=== PATIENT | male | born 1945 | race Two or more races ===

== ENCOUNTER 2025-03-17 07:04 | Inpatient (IN) | payer MEDICARE, OTHER ==
[2025-03-17] VITALS (9 sets, daily range): BP systolic 100–162; BP diastolic 73–87; PULSE 60–73; RESP 12–18; TEMP 97.6–98.7; O2SAT 94–100
[~2025-03-17] VITALS: Ht 165.1 cm; Wt 72.1 kg
[~2025-03-17 07:04] MED LIST: ASPI-498 OR; ATEN-60 PO; FURO20TA4 GT; LEVO25TA6 PO; OMEP20TA PO
[2025-03-17] MEDS ORDERED: MIDAZOLAM HCL 2MG/2ML 2ml VIAL (1mg/ml) ONE (08:31)
[2025-03-17] MEDS ORDERED: fentaNYL CITRATE 100 MCG/2 ML VL ONE (08:31)
[2025-03-17] MEDS ORDERED: KETAMINE 50mg/ML 1ml syringe ONE (08:31)
[2025-03-17] MEDS ORDERED: PROPOFOL 10 MG/ML 20 ML IV ONE (08:32)
[2025-03-17] MEDS ORDERED: BUPIVACAINE/DEXTROSE MPF 0.75% 2 ML AMP IT ONE (08:32)
[2025-03-17] MEDS ORDERED: GLYCOPYRROLATE 0.2 MG/ML 1ML VIAL ONE (08:32)
[2025-03-17] MEDS ORDERED: PHENYLEPHRINE HCL 10 MG/ML VL ONE (08:32)
[2025-03-17] MEDS: CELECOXIB 100 MG CAP PO ONE (08:45)
[2025-03-17] MEDS: ACETAMINOPHEN IV 1000 MG/100ML (10MG/ML) IV ONE ×2 (08:45→15:10)
[2025-03-17] MEDS: PREGABALIN CAPSULE 75 MG CAP PO ONE (08:45)
[2025-03-17] MEDS ORDERED: ceFAZolin 1GM/50ML 50 ML IV SCH (09:30)
[2025-03-17] MEDS ORDERED: NITROGLYCERIN 0.4 MG SL TAB SL PRN (09:30)
[2025-03-17] MEDS ORDERED: MORPHINE SULFATE INJ 2 MG/ml SYRG IV PRN (09:30)
[2025-03-17] MEDS ORDERED: ONDANSETRON HCL 4 MG/2 ML VIAL IV PRN (09:30)
[2025-03-17] MEDS ORDERED: HYDROmorphone HCL 2 MG/ML VL/or syr IV PRN ×2 (09:30→11:15)
[2025-03-17] MEDS: LEVOTHYROXINE SODIUM 25 MCG TAB PO SCH (10:00)
[2025-03-17] MEDS: DOCUSATE SOD 100 MG CAP PO SCH (10:00)
[2025-03-17] MEDS: ATENOLOL 25 MG TAB PO SCH (10:00)
[2025-03-17] MEDS: FUROSEMIDE 20 MG TAB GT SCH (10:00)
[2025-03-17] MEDS: BUPIVACAINE 0.25% INJ 50ML VIAL ONE (10:41)
[2025-03-17] MEDS: MORPHINE SULF PF 5 MG/10 ML VIAL ONE (10:41)
[2025-03-17] MEDS: VANCOMYCIN HCL 1000 MG VL ONE ×2 (10:41→11:50)
[2025-03-17] MEDS: KETOROLAC TROMETH 30 MG/ML 1ML VIAL ONE (10:41)
[2025-03-17] MEDS: LACTATED RINGER'S 1,000 ML IV SCH ×2 (11:00→17:42)
[2025-03-17] MEDS: TRANEXAMIC ACID 20 ML ONE (11:48)
[2025-03-17] MEDS: ceFAZolin 2 GM/D5W50ml 50 ML IV ONE (11:48)
[2025-03-17] MEDS: ACETAMINOPHEN IV 100 ML IV ONE (11:48)
[2025-03-17] MEDS: CEFEPIME 1GM/50ML 50 ML IV ONE (11:49)
[2025-03-17] MEDS: CELECOXIB 100 MG CAP ONE (11:50)
[2025-03-17] MEDS: PREGABALIN CAPSULE 75 MG CAP ONE (11:50)
[2025-03-17] MEDS: CEFEPIME 1GM/50ML 50 ML IV SCH (11:51)
[2025-03-17] MEDS: ENOXAPARIN SOD 40 MG/0.4 ML SYRINGE SC SCH (11:51)
[2025-03-17] MEDS: hydrALAZINE HCL 20 MG/ML VL ONE (12:00)
[2025-03-17] MEDS: hydrALAZINE HCL 20 MG/ML VL IV ONE (12:00)
--- NOTE | 2025-03-17 14:00 | DVHOP2 ---
Operative Report - 2 Report Details Date: 03/17/25 Preop Diagnosis: Right Hip DJD Postop Diagnosis: Same Surgeon: Ajay Aquino MD Anesthesiologist: see report Anesthesia: Mac, Regional Implant: Tomás Z1 5 HO, 52mm G7 cup, 2 screws, Dual mobility Consent: The patient was informed of the risks and benefits of the procedure. These include but are not limited to complications of anesthesia, postoperative infection, incomplete relief of symptoms, recurrence of symptoms, damage to blood vessels, nerves and tendons, deep venous thrombosis, pulmonary embolism and possible need for repeat surgery in the future. Estimated Blood Loss: 250ml Name of Procedure Performed Right Total Hip Arthroplasty Procedure Details Procedure Details: The patient was positioned in the lateral decubitus position with appropriate padding. The operative site was prepped and draped in the standard sterile fashion. A posterior approach was utilized. A skin incision was made posterior to the greater trochanter. Dissection was carried through subcutaneous tissue, and the fascia of the gluteus john was split in line with its fibers. The short external rotators were identified and released, and the hip was dislocated posteriorly. The femoral neck osteotomy was performed, and the femoral head was removed. Attention was then directed to the acetabulum. Acetabular retractors were placed for exposure. The labrum and pulvinar were excised. Sequential reaming was performed to 52 mm. A Tomás G7 52 mm multihole cup was implanted and secured with 2 screws for optimal fixation. A dual mobility liner was inserted and tested for stability. The femur was then prepared. The canal was sequentially reamed and broached. A Tomás Z1 size 5 high offset femoral component was selected and implanted. The appropriate head was placed. The hip was reduced and stability confirmed. The wound was irrigated with pulsatile lavage and a dilute betadine solution. Local anesthetic cocktail was injected into the soft tissues. The capsule and short external rotators were repaired with #5 FiberWire. The fascia was closed with #1 absorbable suture, and the subcutaneous tissue with 2-0 absorbable suture. Skin was closed with nadja. A sterile dressing was applied, and an abduction pillow was placed. The patient was transferred to the recovery room in stable condition. Instrument Count: Correct Surgeon Presence: I was present for the entire procedure. Condition Good Disposition Still a Patient AJAY AQUINO DO Mar 17, 2025 14:00
[2025-03-17] MEDS: ceFAZolin 1GM/50ML 50 ML IV SCH (16:03)
--- NOTE | 2025-03-17 16:08 | DVH ---
CLINICAL INDICATION: Right ARCADIO TECHNIQUE: 1 radiographic views of the right hip were obtained. Comparison: None FINDINGS/IMPRESSION: Total hip replacement is noted on the right. Skin closure nadja are noted in the superficial soft tissues. Rushing catheter is in place.
--- NOTE | 2025-03-17 17:21 | DVHINCON2 ---
Date Seen: Mar 17, [address] HOLLOWAY Family History: Cardiovascular disease G8 FATHER Allergies: Coded Allergies: Diazepam (Unverified Allergy, Mild, PANIC ATTACK, 03/14/25) Morphine (Unverified Allergy, Mild, severe nausea and vomiting, 03/14/25) Home Meds Reported Medications Aspirin (ASPIRIN 81) 81 Mg Tab, OR, TAB 03/14/25 Furosemide (Furosemide) 20 Mg Tab, GT, TAB 03/14/25 Omeprazole (Gnp Omeprazole) 20 Mg Tab, PO, TAB 03/14/25 Levothyroxine Sodium (Levothyroxine Sodium) 25 Mcg Tab, PO, TAB 03/14/25 Atenolol (Atenolol) 25 Mg Tab, PO DAILY, TAB 03/14/25 Current Medications Current Medications Medications (Trade) Dose Ordered Sig/Quinn Route PRN Reason Start Time Stop Time Status Last Admin Atenolol (Tenormin Tablet) 25 mg DAILY PO 03/17/25 10:00 Furosemide (Lasix Tablet) 20 mg DAILY GT 03/17/25 10:00 03/17/25 13:26 Levothyroxine Sodium (Synthroid Tablet) 25 mcg QAM PO 03/17/25 10:00 03/17/25 13:26 Lactated Ringer's 1,000 ml @ 100 mls/hr Q10H IV 03/17/25 09:30 03/17/25 17:20 DC 03/17/25 11:00 Cefazolin Sodium 50 ml @ 50 mls/hr Q6H IV 03/17/25 09:30 03/17/25 11:42 DC Oxycodone/ Acetaminophen (Percocet 5/ 325MG Tablet) 1 tab Q4HP PRN PO MODERATE PAIN 03/17/25 09:30 Hydromorphone HCl (Dilaudid Injection) 1 mg Q2HP PRN IV SEVERE PAIN (7-10 PAIN SCALE) 03/17/25 09:30 Ondansetron HCl (Zofran) 4 mg Q6HP PRN IV NAUSEA / VOMITING 03/17/25 09:30 Docusate Sodium (Colace Capsule) 100 mg Q12HR PO 03/17/25 10:00 Enoxaparin Sodium (Lovenox) 40 mg DAILY SC 03/17/25 10:00 Nitroglycerin (Ntrostat Sublingual) 0.4 mg Q5MINP PRN SL FOR CHEST PAIN 03/17/25 09:30 Morphine Sulfate 2 mg Q30M PRN IV FOR CHEST PAIN 03/17/25 09:30 Cefepime HCl 50 ml @ 12.5 mls/hr DAILY IV 03/17/25 10:00 Pantoprazole Sodium (Protonix Tablet) 40 mg DAILY@0600 PO 03/18/25 06:00 Hydromorphone HCl (Dilaudid Injection) 0.5 mg Q10M PRN IV SEVERE PAIN (7-10 PAIN SCALE) 03/17/25 11:15 03/17/25 11:56 DC Cefazolin Sodium 50 ml @ 50 mls/hr Q6H IV 03/17/25 16:00 03/18/25 04:59 03/17/25 16:03 Lactated Ringer's 1,000 ml @ 75 mls/hr [id number] IV 03/17/25 17:30 UNV Hydralazine HCl (Apresoline Injection) 10 mg Q6HP PRN IV SBP>150 03/17/25 17:30 UNV Vital Signs Vital Signs Date Time Temp Pulse Resp B/P (MAP) Pulse Ox O2 Delivery O2 Flow Rate FiO2 03/17/25 14:55 98.7 73 158/74 (102) 95 98.7 03/17/25 14:55 18 Nasal Cannula* 2 28 Assessment SEE DICTATED NOTE Plan discussed with: Patient Date of Service: Mar 17, 2025 Billing Provider: TRUPTI RITTER MD Common Visit Codes: [id number] INP/OBS CARE (HIGH) Secondary Visit Codes: [id number] CARE PLAN 30 MINUTES TRUPTI RITTER MD Mar 17, 2025 17:21
[2025-03-18] VITALS (7 sets, daily range): BP systolic 102–171; BP diastolic 59–77; PULSE 63–80; RESP 17–18; TEMP 97.4–98.7; O2SAT 90–96
--- NOTE | 2025-03-18 03:43 | DVHINCON2 ---
DATE OF CONSULTATION: 03/17/2025 INTERNAL MEDICINE CONSULT HISTORY OF PRESENT ILLNESS: The patient is a 79-year-old gentleman who was admitted after he underwent surgery on the right hip for DJD of the hip. The patient at this time denies any significant pain. No chest pain, no shortness of breath. No nausea or vomiting. REVIEW OF SYSTEMS: Review of rest of the systems otherwise currently negative. PAST MEDICAL HISTORY: Significant for hypertension, arthritis, hypothyroidism, and GERD as well as chronic kidney disease. MEDICATIONS: He takes Lasix, atenolol, aspirin, levothyroxine, omeprazole. ALLERGIES: TO DIAZEPAM AND MORPHINE. SOCIAL HISTORY: Lives alone. Denies smoking or alcohol at this time. FAMILY HISTORY: Family history is negative. PHYSICAL EXAMINATION: GENERAL: On exam, the patient is awake, alert. VITAL SIGNS: Temperature of 98.7, pulse 73 per minute, blood pressure 158/74. SHEENT: Unremarkable. NECK: There is no JVD. No pedal edema. LUNGS: Equal bilaterally, no added sounds. CARDIOVASCULAR: S1 and S2 is regular without murmurs. ABDOMEN: Soft. There is no organomegaly. NEUROLOGIC: Exam is nonfocal. MUSCULOSKELETAL: There is a dressing at the site of right hip surgery. ASSESSMENT AND PLAN: * Hypertension for which the patient will be placed on atenolol and as-needed hydralazine. * Chronic kidney disease stage 3. * Gastroesophageal reflux disease. * Hypothyroidism. Thyroid-stimulating hormone will be checked. * Status post right hip surgery for degenerative joint disease of the hip for which she will be placed on pain medication and received physical therapy. Advanced care planning. The patient is a full code. Time spent was 18 minutes. MD DONIS Breaux/CISCO TID: [id number] RECEIPT: [id number]
[2025-03-18 06:15] LABS: Nucleated Red Blood Cells % 0.0 %
[2025-03-18 06:18] LABS: Hematocrit 32.2 % (41.0-53.0); Hemoglobin 10.9 g/dL (13.5-17.5); Mean Corpuscular Hemoglobin 36.1 pg (28.0-32.0); Mean Corpuscular Volume 106.7 fL (80.0-100.0)
[2025-03-18 06:32] LABS: Alanine Aminotransferase 26 U/L (7-40); Albumin 4.0 g/dL (3.2-4.8); Alkaline Phosphatase 65 U/L (46-116); Anion Gap 11 (5-15); BUN/Creatinine Ratio 11.9 (10.0-20.0); Calcium 9.1 mg/dL (8.7-10.4); Carbon Dioxide 28 mmol/L (20-31); Potassium 4.0 mmol/L (3.5-5.1); Total Protein 6.5 g/dL (5.7-8.2)
[2025-03-18 06:33] LABS: Bilirubin, Total 0.3 mg/dL (0.2-1.0); Blood Urea Nitrogen 26 mg/dL (9-23); Chloride 95 mmol/L (98-107); Glucose 122 mg/dL (74-106); Sodium 134 mmol/L (136-145)
[2025-03-18] MEDS: PANTOPRAZOLE 40 MG TAB PO SCH (06:39)
[2025-03-18] MEDS: CEFEPIME 1GM/50ML 50 ML IV SCH (10:40)
--- NOTE | 2025-03-18 12:44 | DVHPN2 ---
Progress Note Date Seen: Mar 18, 2025 Medical Necessity Reason Pt with a Central, PICC or Fol: Yes The following are medically ne: Griffin Catheter Subjective Patient reports: No new complaints Objective vital signs Vital Sign Date Time Temp Pulse Resp B/P (MAP) Pulse Ox O2 Delivery O2 Flow Rate FiO2 03/18/25 10:43 119/68 03/18/25 10:43 71 03/18/25 08:00 18 95 Nasal Cannula* 2 28 03/18/25 05:00 97.7 97.7 Total Intake and Output 03/17/25 03/17/25 03/18/25 15:00 23:00 07:00 Intake Total 100 ml 300 ml 700 ml Output Total 900 ml 650 ml Balance -800 ml 300 ml 50 ml medications Current Medications Medications Dose Ordered Sig/Quinn Route Start Time Stop Time Status Last Admin Dose Admin Atenolol 25 mg DAILY PO 03/17/25 10:00 03/18/25 10:43 25 MG Furosemide 20 mg DAILY GT 03/17/25 10:00 03/18/25 10:43 20 MG Levothyroxine Sodium 25 mcg QAM PO 03/17/25 10:00 03/18/25 06:39 25 MCG Oxycodone/ Acetaminophen 1 tab Q4HP PRN PO 03/17/25 09:30 Hydromorphone HCl 1 mg Q2HP PRN IV 03/17/25 09:30 Ondansetron HCl 4 mg Q6HP PRN IV 03/17/25 09:30 Docusate Sodium 100 mg Q12HR PO 03/17/25 10:00 03/18/25 10:39 100 MG Enoxaparin Sodium 40 mg DAILY SC 03/17/25 10:00 03/18/25 10:39 40 MG Nitroglycerin 0.4 mg Q5MINP PRN SL 03/17/25 09:30 Morphine Sulfate 2 mg Q30M PRN IV 03/17/25 09:30 Pantoprazole Sodium 40 mg DAILY@0600 PO 03/18/25 06:00 03/18/25 06:39 40 MG Lactated Ringer's 1,000 ml @ 75 mls/hr [id number] IV 03/17/25 17:30 03/17/25 17:42 75 MLS/HR Hydralazine HCl 10 mg Q6HP PRN IV 03/17/25 17:30 Cefepime HCl 50 ml @ 12.5 mls/hr DAILY IV 03/18/25 10:00 03/18/25 10:40 12.5 MLS/HR Examination: GENERAL:Normal, MSK:Abnormal laboratory and microbiology Laboratory Tests 03/18/25 05:36 Test 03/18/25 05:36 Range/Units Serum Glucose 122 H 74-106 mg/dL Microbiology Date/Time Source Procedure Growth Status 03/17/25 09:52 Hip Right Gram Stain - Final Resulted 03/17/25 09:52 Hip Right Anaerobic Culture - Preliminary No growth Resulted 03/17/25 09:52 Hip Right Aerobic Culture - Preliminary No growth Resulted Problem List/Assessment/Plan Problem List/Assessment/Plan 79 year old male who is s/p right ARCADIO POD 1 1. pain control 2. DVT ppx 3. WBAT 4. PT 5. Rec d/c griffin cath 6. d/c planning for SNF as patient has not help at home Plan discussed with: Patient Date of Service: Mar 18, 2025 Billing Provider: MARIAN MORALES MD Common Visit Codes: NOT BILLABLE NEVILLE MARTINEZ NP Mar 18, 2025 12:44
--- NOTE | 2025-03-18 16:12 | DVHPN2 ---
Progress Note Date Seen: Mar 18, 2025 Medical Necessity Reason Pt with a Central, PICC or Fol: Yes The following are medically ne: Griffin Catheter Reason for griffin catheter: Strict I&O Subjective Patient reports: No new complaints Review of Systems: HEENT:Normal, CVS:Normal, RESPIRATORY:Normal, GI:Normal, :Normal, MSK:Normal, NEURO:Normal Objective vital signs Vital Sign Date Time Temp Pulse Resp B/P (MAP) Pulse Ox O2 Delivery O2 Flow Rate FiO2 03/18/25 13:00 97.9 76 18 109/77 (88) 94 97.9 03/18/25 08:00 Nasal Cannula* 2 28 Total Intake and Output 03/17/25 03/17/25 03/18/25 15:00 23:00 07:00 Intake Total 100 ml 300 ml 700 ml Output Total 900 ml 650 ml Balance -800 ml 300 ml 50 ml medications Current Medications Medications Dose Ordered Sig/Quinn Route Start Time Stop Time Status Last Admin Dose Admin Atenolol 25 mg DAILY PO 03/17/25 10:00 03/18/25 10:43 25 MG Furosemide 20 mg DAILY GT 03/17/25 10:00 03/18/25 10:43 20 MG Levothyroxine Sodium 25 mcg QAM PO 03/17/25 10:00 03/18/25 06:39 25 MCG Oxycodone/ Acetaminophen 1 tab Q4HP PRN PO 03/17/25 09:30 Hydromorphone HCl 1 mg Q2HP PRN IV 03/17/25 09:30 Ondansetron HCl 4 mg Q6HP PRN IV 03/17/25 09:30 Docusate Sodium 100 mg Q12HR PO 03/17/25 10:00 03/18/25 10:39 100 MG Enoxaparin Sodium 40 mg DAILY SC 03/17/25 10:00 03/18/25 10:39 40 MG Nitroglycerin 0.4 mg Q5MINP PRN SL 03/17/25 09:30 Morphine Sulfate 2 mg Q30M PRN IV 03/17/25 09:30 Pantoprazole Sodium 40 mg DAILY@0600 PO 03/18/25 06:00 03/18/25 06:39 40 MG Lactated Ringer's 1,000 ml @ 75 mls/hr [id number] IV 03/17/25 17:30 03/17/25 17:42 75 MLS/HR Hydralazine HCl 10 mg Q6HP PRN IV 03/17/25 17:30 Cefepime HCl 50 ml @ 12.5 mls/hr DAILY IV 03/18/25 10:00 03/18/25 10:40 12.5 MLS/HR Examination: GENERAL:Normal, HEENT:Normal, NECK:Normal, LUNGS:Normal, CVS:Normal, ABDOMEN:Normal, MSK:Normal, MSK:Abnormal (right hip dressing), SKIN:Normal, NEURO:Normal, :Normal laboratory and microbiology Laboratory Tests 03/18/25 05:36 Test 03/18/25 05:36 Range/Units Serum Glucose 122 H 74-106 mg/dL Microbiology Date/Time Source Procedure Growth Status 03/17/25 09:52 Hip Right Gram Stain - Final Resulted 03/17/25 09:52 Hip Right Anaerobic Culture - Preliminary No growth Resulted 03/17/25 09:52 Hip Right Aerobic Culture - Preliminary No growth Resulted Problem List/Assessment/Plan Problem List/Assessment/Plan * Hypertension for which the patient will be placed on atenolol and as-needed hydralazine. * Chronic kidney disease stage 3. * Gastroesophageal reflux disease. * Hypothyroidism. Thyroid-stimulating hormone will be checked. * Status post right hip surgery for degenerative joint disease of the hip for which she will be placed on pain medication and received physical therapy. Plan discussed with: Patient My Orders My Orders Orders - TRUPTI RITTER MD Procedure Category Date Status Time Lactated Ringer's PHA 03/17/25 In Process 17:30 Hydralazine Injection PHA 03/17/25 In Process (Apresoline Inject 17:30 * Supervisory Forester CONS 03/18/25 Transmitted Consult Hydromorphone PHA 03/18/25 Verified Injection (Dilaudid 16:15 Basic Metabolic Panel LAB 03/19/25 Verified 06:00 Complete Blood Count LAB 03/19/25 Verified 06:00 Date of Service: Mar 18, 2025 Billing Provider: TRUPTI RITTER MD Common Visit Codes: [id number] INP/OBS CARE(HIGH) TRUPTI RITTER MD Mar 18, 2025 16:12
[2025-03-18] MEDS ORDERED: HYDROmorphone HCL 2 MG/ML VL/or syr IV PRN (16:15)
[2025-03-18] MEDS: hydrALAZINE HCL 20 MG/ML VL IV PRN (21:28)
[2025-03-19] VITALS (8 sets, daily range): BP systolic 120–154; BP diastolic 45–86; PULSE 68–96; RESP 16–94; TEMP 98.2–99.3; O2SAT 91–99
[2025-03-19 07:37] LABS: Hematocrit 31.9 % (41.0-53.0); Hemoglobin 10.9 g/dL (13.5-17.5); Mean Corpuscular Hemoglobin 36.1 pg (28.0-32.0); Mean Corpuscular Volume 105.4 fL (80.0-100.0); Nucleated Red Blood Cells % 0.0 %
[2025-03-19 07:43] LABS: Calcium 9.7 mg/dL (8.7-10.4); Potassium 3.5 mmol/L (3.5-5.1)
[2025-03-19 07:44] LABS: Anion Gap 12 (5-15); Carbon Dioxide 28 mmol/L (20-31)
--- NOTE | 2025-03-19 07:47 | DVHPN2 ---
Progress Note Date Seen: Mar 19, 2025 Medical Necessity Reason Pt with a Central, PICC or Fol: No Objective vital signs Vital Sign Date Time Temp Pulse Resp B/P (MAP) Pulse Ox O2 Delivery O2 Flow Rate FiO2 03/19/25 06:13 154/63 03/19/25 05:00 98.2 74 94 94 98.2 03/18/25 20:00 Room Air* 0 21 Total Intake and Output 03/18/25 03/18/25 03/19/25 15:00 23:00 07:00 Intake Total 50 ml 720 ml 300 ml Output Total 300 ml Balance 50 ml 720 ml 0 ml medications Current Medications Medications Dose Ordered Sig/Quinn Route Start Time Stop Time Status Last Admin Dose Admin Atenolol 25 mg DAILY PO 03/17/25 10:00 03/18/25 10:43 25 MG Furosemide 20 mg DAILY GT 03/17/25 10:00 03/18/25 10:43 20 MG Levothyroxine Sodium 25 mcg QAM PO 03/17/25 10:00 03/19/25 06:11 25 MCG Oxycodone/ Acetaminophen 1 tab Q4HP PRN PO 03/17/25 09:30 Ondansetron HCl 4 mg Q6HP PRN IV 03/17/25 09:30 Docusate Sodium 100 mg Q12HR PO 03/17/25 10:00 03/18/25 21:25 100 MG Nitroglycerin 0.4 mg Q5MINP PRN SL 03/17/25 09:30 Morphine Sulfate 2 mg Q30M PRN IV 03/17/25 09:30 Pantoprazole Sodium 40 mg DAILY@0600 PO 03/18/25 06:00 03/19/25 06:11 40 MG Hydralazine HCl 10 mg Q6HP PRN IV 03/17/25 17:30 03/19/25 06:13 10 MG Cefepime HCl 50 ml @ 12.5 mls/hr DAILY IV 03/18/25 10:00 03/18/25 10:40 12.5 MLS/HR Hydromorphone HCl 1 mg Q3HP PRN IV 03/18/25 16:15 Enoxaparin Sodium 30 mg HS SC 03/19/25 22:00 Examination: GENERAL:Normal, MSK:Abnormal laboratory and microbiology Laboratory Tests 03/19/25 06:40 Test 03/19/25 06:40 Range/Units Serum Glucose Pending Microbiology Date/Time Source Procedure Growth Status 03/17/25 09:52 Hip Right Gram Stain - Final Resulted 03/17/25 09:52 Hip Right Anaerobic Culture - Preliminary No growth Resulted 03/17/25 09:52 Hip Right Aerobic Culture - Preliminary No growth Resulted Problem List/Assessment/Plan Problem List/Assessment/Plan 79 year old male who is s/p right ARCADIO POD 2 1. pain control 2. DVT ppx 3. WBAT 4. PT 5. Rec d/c griffin cath 6. follow up in 2 weeks as scheduled on 04/01/2025 a 1:15 7. dressing to stay in place until first postop visit 8. clear for discharge from orthopedic standpoint with the following discharge recommendations: POSTOPERATIVE Posterior Total Hip INSTRUCTIONS Activity: 1. You can bear as much weight as you tolerate on your hip unless specifically instructed otherwise. You may use the walking aid which you were discharged with and switch to a cane whenever you feel comfortable doing so. You should use an assistive device until you can walk comfortably without it. Keep in mind that every patient moves at their own speed of recovery so take your time. 2. A physical therapist will visit you at home. 3. Although guarantees against a dislocation do not exist, the hip was noted to be sufficiently stable in surgery. Below are motions that you should dischargenot do for 4-6 weeks, depending on the surgical approach used. If there are questions, please call the office. a. Bend forward past 90 degrees b. Sit on a regular low chair, couch, car seat etc... c. Cross your legs d. Use a regular low toilet seat. e. Sleep on your stomach or on either side. 3. High impact activity such as jumping, aerobics, tennis, and skiing are not permitted during the first 3 months after surgery. These activities can contribute to accelerated wear and should be done with caution after this time. Discuss this with your surgeon if you have questions. 4. Although a bath or whirlpool is NOT permitted during the first 2-3 weeks, you may shower as soon as you get home from the hospital provided you are able to keep your bandage clean and dry and there is no wound drainage. If you are unable to place a secured covering over your bandage bed bath/sponge bath may likely be the more appropriate option. 5. Swimming is not permitted until the wound is healed, which typically occurs approximately 3-4 weeks after surgery. Wound Management: If the wound is draining please change the gauze pad on the wound until it stops. If drainage persists past 10 days please notify our office. If there is a sticky gel dressing over your wound, you may leave this in place for as long as it is clean and dry. If it becomes loose or causes skin irritation, it is OK to remove it and place clean gauze over your wound. 1. You might notice some bruising around the surgical site, this is normal. 2. Check your temperature on a daily basis. Please note that a low-grade temp below 101 is not uncommon after surgery especially during the first 3 days. Notify the office if your temperature spikes above 101.5 after the 3rd post- operative date. 3. Many patients experience significant swelling in the thigh, this may extend below the knee and sometimes to the ankle. Swelling increases during the first week and subsides during the following week. 4. Provided you have been on a blood thinner since surgery and have been up and about at least three times per day, the risk of a blood clot is low and this swelling is an expected part of recovery. It will largely or completely resolve by your first post-operative visit. 5. [place], if present, will be removed at 2 weeks during initial post-op visit. Medications: 1. You will be discharged with pain medication, Aspirin as a blood thinner and sometimes an anti-inflammatory medication such as Celebrex or Mobic might be prescribed. Please follow the instructions regarding these medicines as provided by your nurse at the hospital. 2. Narcotic pain medication has side effects, including constipation. Please ensure you continue to take stool softeners (Colace, Senna) while taking your pain medication to help protect against constipation. Getting up and moving around at least a few times per day helps with this also. 3. Lovenox 40 Sq x 12 days followed by one regular strength 325 mg coated aspirin daily for 4 weeks after surgery. Then, take one baby aspirin, 81 mg daily for 6 weeks more. A major, yet preventable, complication of Orthopaedic Surgery is a blood clot (DVT). It is important not to miss any doses of this important medication. 4. You should restart all of your prescription medications once discharged unless specifically instructed otherwise. 5. Herbal supplements may be restarted 2 weeks after surgery. Miscellaneous issues: 1. Driving is not permitted within the first 2 weeks. 2. Your first postoperative visit will take place 2weeks after discharge. Please call the office to arrange this appointment. 3. Antibiotic preventative treatment is required before dental or other invasive procedures. Please ask your surgeon about this at your first postoperative visit. Your hip replacement contains metal which may activate metal detectors. You may wish to carry a letter from your surgeon to communicate this to security personnel. If you experience chest pain, shortness of breath or severe painful calf swelling, go to the nearest emergency room to be evaluated. Please call our office once your situation is stabilized. Plan discussed with: Patient My Orders My Orders Orders - NEVILLE MARTINEZ NP Procedure Category Date Status Time * District Agent CONS 03/18/25 Transmitted Consult Date of Service: Mar 19, 2025 Billing Provider: MARIAN MORALES MD Common Visit Codes: NOT BILLABLE NEVILLE MARTINEZ NP Mar 19, 2025 07:47
[2025-03-19 07:49] LABS: BUN/Creatinine Ratio 10.2 (10.0-20.0); Chloride 93 mmol/L (98-107); Sodium 133 mmol/L (136-145)
[2025-03-19 07:52] LABS: Blood Urea Nitrogen 25 mg/dL (9-23); Glucose 122 mg/dL (74-106)
[2025-03-19] MEDS: OXYCODONE W/ ACETAMINOPHEN 5/325MG TABLET PO PRN (09:57)
--- NOTE | 2025-03-19 12:10 | DVHDS2 ---
Discharge Summary Date of Admission Mar 17, 2025 at 09:17 Date of Discharge: Mar 19, 2025 Labs/Diagnostic Data: Laboratory Results Test 03/19/25 06:40 03/18/25 05:36 White Blood Count 9.6 10^3/uL (4.4-10.8) Red Blood Count 3.02 10^6/uL (4.5-5.90) Hemoglobin 10.9 g/dL (13.5-17.5) Hematocrit 31.9 % (41.0-53.0) Mean Corpuscular Volume 105.4 fL (80.0-100.0) Mean Corpuscular Hemoglobin 36.1 pg (28.0-32.0) Mean Corpuscular Hemoglobin Concent 34.2 g/dL (32.0-36.0) Red Cell Distribution Width 13.5 % (11.8-14.3) Platelet Count 148 10^3/uL (140-450) Mean Platelet Volume 11.5 fL (6.9-10.8) Neutrophils (%) (Auto) 82.1 % (37.0-80.0) Lymphocytes (%) (Auto) 10.1 % (10.0-50.0) Monocytes (%) (Auto) 6.5 % (0.0-12.0) Eosinophils (%) (Auto) 0.6 % (0.0-7.0) Basophils (%) (Auto) 0.7 % (0.0-2.0) Neutrophils # (Auto) 7.9 10 ^3/uL (1.6-8.6) Lymphocytes # (Auto) 1.0 10 ^3/uL (0.4-5.4) Monocytes # (Auto) 0.6 10 ^3/uL (0-1.3) Eosinophils # (Auto) 0.1 10 ^3/uL (0-0.8) Basophils # (Auto) 0.1 10 ^3/uL (0-0.2) Nucleated Red Blood Cells 0.0 % Sodium Level 133 mmol/L (136-145) Potassium Level 3.5 mmol/L (3.5-5.1) Chloride Level 93 mmol/L (98-107) Carbon Dioxide Level 28 mmol/L (20-31) Anion Gap 12 (5-15) Blood Urea Nitrogen 25 mg/dL (9-23) Creatinine 2.46 mg/dL (0.700-1.30) Glomerular Filtration Rate Calc 26 mL/min (>90) BUN/Creatinine Ratio 10.2 (10.0-20.0) Serum Glucose 122 mg/dL (74-106) Calcium Level 9.7 mg/dL (8.7-10.4) Total Bilirubin 0.3 mg/dL (0.2-1.0) Aspartate Amino Transferase (AST) 59 U/L (13-40) Alanine Aminotransferase (ALT) 26 U/L (7-40) Alkaline Phosphatase 65 U/L (46-116) Total Protein 6.5 g/dL (5.7-8.2) Albumin 4.0 g/dL (3.2-4.8) Thyroid Stimulating Hormone (TSH) 1.88 uIU/mL (0.55-4.78) Other Laboratory Tests 03/19/25 06:40 Brief Hx & Hospital Course: SEE DICTATED NOTE Condition at Discharge: Fair Final Diagnosis/Problems List HIP SURGERY [facility] Discharge Instruct/Medications Diet: Cardiac 2g Na,low cholest Activity: No Restrictions, As Tolerated Follow Up/Referral: FU WITH PCP/ORTHO Medications: PER MAR Scheduled Atenolol (Atenolol), Unknown Dose PO DAILY, (Reported) Miscellaneous Medications Aspirin (Aspirin 81), Unknown Dose OR, (Reported) Furosemide (Furosemide), Unknown Dose GT, (Reported) Levothyroxine Sodium (Levothyroxine Sodium), Unknown Dose PO, (Reported) Omeprazole (Gnp Omeprazole), Unknown Dose PO, (Reported) Discharge Statement: "Patient was advised to return to the ER or call 911 if any headaches, dizziness, shortness of breath, chest pain, abdominal pain, bleeding, fevers, or worsening of medical condition. Patient was counseled about treatment plan, medications, possible side effects, patientverbalized understanding. All questions were answered to the best of my ability. This discharge took greater then 30 minutes in planning, reviewing documentation, counseling the patient, and discussing with other team members." ASSESSMENT ASSESSMENT Assessment HIP SURGERY Date of Service: Mar 19, 2025 Billing Provider: TRUPTI RITTER MD Common Visit Codes: [id number] DISCH DAY >30min TRUPTI RITTER MD Mar 19, 2025 12:10
[2025-03-19] MEDS: FUROSEMIDE 20 MG TAB PO SCH (13:23)
--- NOTE | 2025-03-19 19:46 | DVHDS ---
DATE OF DISCHARGE: 03/19/2025 HISTORY OF PRESENT ILLNESS: The patient is a 79-year-old gentleman who was admitted after he underwent surgery on the right hip for DJD of the hip and has previous history of hypertension, hypothyroidism, and GERD as well as chronic kidney disease. HOSPITAL COURSE: The patient's creatinine remained at about 2.1-2.4. The patient's hemoglobin at the time of discharge is 10.9. The patient will now be discharged to a rehab facility with medication as per med reconciliation. He will follow up with his primary and Orthopedics. FINAL DIAGNOSES: - Hypertension. - Chronic kidney disease stage 3B. - Gastroesophageal reflux disease. - Hypothyroidism. - Status post right hip surgery for degenerative joint disease of the hip. Time spent in discharge planning and review of plan with the patient and nursing was 38 minutes. MD DONIS Breaux/YESICA TID: [id number] RECEIPT: [id number] [facility]
[2025-03-19] MEDS: ENOXAPARIN SOD 30 MG/0.3 ML SYRINGE SC SCH (22:09)
[2025-03-20 01:00] VITALS: BP 143/81; PULSE 65; RESP 14; TEMP 98.7; O2SAT 97
[2025-03-20 05:00] VITALS: BP 161/87; PULSE 71; RESP 14; TEMP 98.5; O2SAT 90
[2025-03-20 07:04] LABS: Hematocrit 29.0 % (41.0-53.0); Hemoglobin 10.0 g/dL (13.5-17.5)
[2025-03-20 08:00] VITALS: PULSE 65; RESP 16; O2SAT 94
[2025-03-20 09:00] VITALS: BP 132/59; PULSE 65; RESP 16; TEMP 99; O2SAT 94
[2025-03-20] MEDS ORDERED: FUROSEMIDE 20 MG TAB PO SCH (10:00)
[2025-03-20 11:43] VITALS: BP 105/66; PULSE 73; RESP 18; TEMP 98.4; O2SAT 96
--- NOTE | 2025-03-20 15:08 | DVHPN2 ---
Progress Note Date Seen: Mar 20, 2025 Medical Necessity Reason Pt with a Central, PICC or Fol: No Subjective Patient reports: No new complaints Review of Systems: HEENT:Normal, CVS:Normal, RESPIRATORY:Normal, GI:Normal, :Normal, MSK:Normal, NEURO:Normal Objective vital signs Vital Sign Date Time Temp Pulse Resp B/P (MAP) Pulse Ox O2 Delivery O2 Flow Rate FiO2 03/20/25 11:43 98.4 73 18 105/66 (79) 96 98.4 03/20/25 08:00 Nasal Cannula* 3 32 Total Intake and Output 03/19/25 03/19/25 03/20/25 15:00 23:00 07:00 Intake Total 290 ml 300 ml 0 ml Output Total 400 ml 1200 ml Balance 290 ml -100 ml -1200 ml medications Current Medications Medications Dose Ordered Sig/Quinn Route Start Time Stop Time Status Last Admin Dose Admin Atenolol 25 mg DAILY PO 03/17/25 10:00 03/20/25 09:49 25 MG Levothyroxine Sodium 25 mcg QAM PO 03/17/25 10:00 03/20/25 06:00 25 MCG Oxycodone/ Acetaminophen 1 tab Q4HP PRN PO 03/17/25 09:30 03/20/25 05:40 1 TAB Ondansetron HCl 4 mg Q6HP PRN IV 03/17/25 09:30 Docusate Sodium 100 mg Q12HR PO 03/17/25 10:00 03/20/25 09:50 100 MG Nitroglycerin 0.4 mg Q5MINP PRN SL 03/17/25 09:30 Morphine Sulfate 2 mg Q30M PRN IV 03/17/25 09:30 Pantoprazole Sodium 40 mg DAILY@0600 PO 03/18/25 06:00 03/20/25 05:39 40 MG Hydralazine HCl 10 mg Q6HP PRN IV 03/17/25 17:30 03/19/25 06:13 10 MG Cefepime HCl 50 ml @ 12.5 mls/hr DAILY IV 03/18/25 10:00 03/20/25 09:49 12.5 MLS/HR Hydromorphone HCl 1 mg Q3HP PRN IV 03/18/25 16:15 Enoxaparin Sodium 30 mg HS SC 03/19/25 22:00 03/19/25 22:09 30 MG Furosemide 20 mg DAILY PO 03/19/25 13:15 03/20/25 09:50 20 MG Examination: GENERAL:Normal, HEENT:Normal, NECK:Normal, LUNGS:Normal, CVS:Normal, ABDOMEN:Normal, MSK:Normal, MSK:Abnormal (right hip dressing), SKIN:Normal, NEURO:Normal, :Normal laboratory and microbiology Laboratory Tests 03/20/25 06:13 03/19/25 06:40 Test 03/19/25 06:40 Range/Units Serum Glucose 122 H 74-106 mg/dL Microbiology Date/Time Source Procedure Growth Status 03/17/25 09:52 Hip Right Gram Stain - Final Resulted 03/17/25 09:52 Hip Right Anaerobic Culture - Preliminary No growth Resulted 03/17/25 09:52 Hip Right Aerobic Culture - Preliminary No growth Resulted Problem List/Assessment/Plan Problem List/Assessment/Plan * Hypertension for which the patient will be placed on atenolol and as-needed hydralazine. * Chronic kidney disease stage 3. * Gastroesophageal reflux disease. * Hypothyroidism. Thyroid-stimulating hormone will be checked. * Status post right hip surgery for degenerative joint disease of the hip for which she will be placed on pain medication and received physical therapy. dc planning to snf today Plan discussed with: Patient My Orders My Orders Orders - TRUPTI RITTER MD Procedure Category Date Status Time Discharge DISCHARGE 03/20/25 Transmitted Date of Service: Mar 20, 2025 Billing Provider: TRUPTI RITTER MD Common Visit Codes: [id number] INP/OBS CARE(HIGH) TRUPTI RITTER MD Mar 20, 2025 15:08
[2025-03-20 16:47] VITALS: BP 100/70; PULSE 72; RESP 20; TEMP 98.3; O2SAT 99
== END 2025-03-20 17:33 | DRG 470 ==
LOC: SUR 07:04 → OVERFLOW 09:17 → WEST WING 15:00
PROVIDERS: ADMIT Internal Medicine; ATTEND Internal Medicine
PROC: 0SR906A Replacement of Right Hip Joint with Oxidized Zirconium on Polyethylene Synthetic Substitute, Uncemented, Open Approach (ICD-10-PCS; principal; 2025-03-17 09:00)
DX: M16.11 Unilateral primary osteoarthritis, right hip (principal); E03.9 Hypothyroidism, unspecified; I12.9 Hypertensive chronic kidney disease with stage 1 through stage 4 chronic kidney disease, or unspecified chronic kidney disease; N18.32 Chronic kidney disease, stage 3b; K21.9 Gastro-esophageal reflux disease without esophagitis; Z82.49 Family history of ischemic heart disease and other diseases of the circulatory system; Z79.82 Long term (current) use of aspirin; Z79.899 Other long term (current) drug therapy
CPT/HCPCS: 36415; 72170; 80048; 80053; 84443; 85014; 85018; 85025; 87070; 87075; 87205; 97110; 97116; 97163; 97530; G0378; J0131; J1885; J2250; J2704; J3490